=== PATIENT | male | born 2000 | race Caucasian/White ===

== ENCOUNTER 2021-07-13 06:06 | Emergency (ER) | payer OTHER ==
[~2021-07-13] VITALS: Ht 165.1 cm; Wt 63.0 kg
[2021-07-13 06:12] VITALS: BP 128/81
[2021-07-13] MEDS ORDERED: AMOX1TAB11 PO (06:33)
--- NOTE | 2021-07-13 06:33 | PHYS DOC ---
Past History Past Surgical History: Tonsillectomy Alcohol Use: Occasionally General Adult EDM: Chief Complaint: ANIMAL BITE HPI: HPI: 21-year-old male presents with raccoon bites of both lower legs. The patient went out to get in his truck this morning and found that there was a raccoon in the back of his truck. He attempted tissue away but it attacked him. It bit him on both lower legs. Patient has never been vaccinated against rabies. The skin was broken. He is confident that it bit him versus just scratching him. His tetanus is up-to-date as he is in the . Bleeding is controlled. He has no other complaints this time. Review of Systems: Review of Systems: Constitutional: Denies fever or chills Eyes: Denies change in visual acuity HENT: Denies nasal congestion or sore throat Respiratory: Denies cough or shortness of breath Cardiovascular: Denies chest pain or edema GI: Denies abdominal pain, nausea, vomiting, bloody stools or diarrhea : Denies dysuria Musculoskeletal: Denies back pain or joint pain Integument: Denies rash Neurologic: Denies headache, focal weakness or sensory changes Endocrine: Denies polyuria or polydipsia Lymphatic: Denies swollen glands Psychiatric: Denies depression or anxiety Current Medications: Current Meds: Current Medications Medications (Trade) Dose Ordered Sig/Korina Start Time Stop Time Status Last Admin Dose Admin Rabies Immune Globulin (HyperRAB 300 UNIT/ML VIAL) 4.2 ml ONCE ONCE 07/13/21 06:30 07/13/21 06:31 UNV Rabies Vaccine Human Diploid Cell (Imovax Rabies 2.5 Unit / ml) 1 ml ONCE ONCE 07/13/21 06:30 07/13/21 06:31 UNV Allergies: Allergies: Allergies Coded Allergies Type Severity Reaction Last Updated Verified No Known Drug Allergies 07/13/21 No Physical Exam: PE: Constitutional: Well developed, well nourished, no acute distress, non-toxic appearance. [] HENT: Normocephalic, atraumatic, bilateral external ears normal, oropharynx moist, no oral exudates, nose normal. [] Eyes: PERRLA, EOMI, conjunctiva normal, no discharge. [] Neck: Normal range of motion, no tenderness, supple, no stridor. [] Cardiovascular:Heart rate regular rhythm, no murmur [] Lungs & Thorax: Bilateral breath sounds clear to auscultation [] Abdomen: Bowel sounds normal, soft, no tenderness, no masses, no pulsatile masses. [] Skin: Warm, dry, no erythema, no rash. [] Back: No tenderness, no CVA tenderness. [] Extremities: No tenderness, no cyanosis, no clubbing, ROM intact, no edema. [] Neurologic: Alert and oriented X 3, normal motor function, normal sensory function, no focal deficits noted. [] Psychologic: Affect normal, judgement normal, mood normal. [] Current Patient Data: Vital Signs: Vital Signs Date Time Temp Pulse Resp B/P (MAP) Pulse Ox O2 Delivery O2 Flow Rate FiO2 07/13/21 06:12 98.2 96 18 128/81 (97) 99 Room Air EKG: EKG: [] Radiology/Procedures: Radiology/Procedures: [] Heart Score: C/O Chest Pain: N/A Risk Factors: Risk Factors: DM, Current or recent (<one month) smoker, HTN, HLP, family history of CAD, obesity. Risk Scores: Score 0 - 3: 2.5% MACE over next 6 weeks - Discharge Home Score 4 - 6: 20.3% MACE over next 6 weeks - Admit for Clinical Observation Score 7 - 10: 72.7% MACE over next 6 weeks - Early Invasive Strategies Course & Med Decision Making: Course & Med Decision Making Pertinent Labs and Imaging studies reviewed. (See chart for details) Given the patient was directly bit by a raccoon, the patient is here for rabies vaccination series as well as immunoglobulin. Wound was thoroughly irrigated with chlorhexidine and then a Betadine solution. The patient was given his first dose of the rabies vaccine series. He was also given weight-based dose of immunoglobulin in and around the wound sites. I will discharge him on Augmentin. We give the first dose in the emergency room. His tetanus is up-to-date. He was given directions on setting up the rest of his vaccination. He is stable for discharge at this time. [] Dragon Disclaimer: Bess Disclaimer: This electronic medical record was generated, in whole or in part, using a voice recognition dictation system. Departure Departure: Impression: Primary Impression: Bitten by raccoon, initial encounter Disposition: HOME / SELF CARE / HOMELESS Condition: STABLE Referrals: RAGHAV HUFFMAN DO (PCP) Patient Instructions: Rabies, Rabies Immune Globulin, human RIG solution for injection, Rabies Vaccine suspension for injection Additional Instructions: Today you get your first dose of the rabies vaccination series. This is considered a 0. You need 3 more immunizations on days 3, 7, and 14. Please coordinate these with [facility]. If they do not have these available he should contact the [facility] for guidance about a location to receive these vaccines. You should get these vaccines scheduled today. Scripts Amoxicillin/Potassium Clav (AMOX TR-K CLV 875-125 MG TAB) 1 Each Tablet 1 TAB PO BID for animal bite for 7 Days, #14 TAB Prov: FREDDY MELTON DO 07/13/21 FREDDY MELTON DO Jul 13, 2021 06:33
[2021-07-13] MEDS ORDERED: AMOXICILLIN/K CLAV 875/125MG TABLET. PO ONE (07:00)
[2021-07-13] MEDS ORDERED: RABIES IMMUNE GLOBULIN/PF 300 UNIT/ML 5ML VIAL. VAX IM ONE (07:00)
[2021-07-13] MEDS ORDERED: RABIES VIRUS VACC PF 2.5 UNIT / 1 ML VIAL. VAX IM ONE (07:00)
== END 2021-07-13 08:47 | disposition home or self-care (01) ==
LOC: ER 06:06
DX: S81.852A Open bite, left lower leg, initial encounter (principal); S81.851A Open bite, right lower leg, initial encounter; W55.51XA Bitten by raccoon, initial encounter; Y93.89 Activity, other specified; Y92.89 Other specified places as the place of occurrence of the external cause; Y99.8 Other external cause status
CPT/HCPCS: 90375; 90471; 90675; 96372; 99284

== ENCOUNTER 2021-07-27 09:03 | Emergency (ER) | payer OTHER ==
[~2021-07-27] VITALS: Ht 165.1 cm; Wt 63.0 kg
[~2021-07-27 09:03] MED LIST: AMOX1TAB11 PO
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
[2021-07-27 09:12] VITALS: BP 106/68
[2021-07-27] MEDS ORDERED: RABIES VIRUS VACC PF 2.5 UNIT / 1 ML VIAL. VAX IM ONE (09:15)
== END 2021-07-27 09:34 | disposition home or self-care (01) ==
LOC: ER 09:03
DX: Z23 Encounter for immunization (principal)
CPT/HCPCS: 90471; 90675; 99283